=== PATIENT | male | born 1990 | race Caucasian/White ===

== ENCOUNTER 2019-03-12 09:43 | Emergency (ER) | payer BC ==
[2019-03-12 11:15] VITALS: BP 100/84
--- NOTE | 2019-03-12 12:34 | ED ---
Lower Extremity - HPI Summary HPI Summary: Patient is a 28-year-old male who presents to the ED with a left ankle injury/ pain. Patient is endorsing pain to the left lateral ankle with swelling. Denies ecchymosis. He states he has fractured this ankle approximately 3 times in the past. He states this feels similar. He's been unable to ambulate. Unable to bear weight. He has been icing and elevating since yesterday without much improvement. He also took a 200 mg ibuprofen. - History of Current Complaint Chief Complaint: EDExtremityLower Stated Complaint: "LEFT ANKLE INJURY PER PT" Time Seen by Provider: 03/12/19 09:50 Hx Obtained From: Patient Mechanism Of Injury: Twisted Onset of Pain: Hours Onset/Duration: Hours Severity Initially: Moderate Severity Currently: Moderate Pain Intensity: 4 Pain Scale Used: 0-10 Numeric Timing: Constant Location: Is Discrete @ - left ankle pain Character Of Pain: Aching Associated Signs And Symptoms: Positive: Swelling. Negative: Redness, Bruising Aggravating Factor(s): Standing, Ambulation Alleviating Factor(s): Rest Able to Bear Weight: No - Risk Factors Gout Risk Factors: Negative DVT Risk Factors: Negative Septic Arthritis Risk Factor: Negative - Allergies/Home Medications Allergies/Adverse Reactions: Allergies Allergy/AdvReac Type Severity Reaction Status Date / Time No Known Allergies Allergy Verified 03/12/19 09:47 Home Medications: Home Medications NK [No Home Medications Reported] 03/12/19 [History Confirmed 03/12/19] PMH/Surg Hx/FS Hx/Imm Hx Previously Healthy: Yes - Immunization History Hx Pertussis Vaccination: No Immunizations Up to Date: Yes Infectious Disease History: No Infectious Disease History: Denies: Traveled Outside the [place] in Last 30 Days - Social History Occupation: Employed Full-time Lives: With Family Alcohol Use: Occasionally Hx Substance Use: No Substance Use Type: Reports: None Hx Tobacco Use: Yes Smoking Status (MU): Current Some Day Smoker Review of Systems Constitutional: Negative Negative: Fever, Chills, Fatigue Negative: Palpitations, Chest Pain Negative: Shortness Of Breath, Cough Genitourinary: Negative Positive: no symptoms reported, see HPI Positive: Arthralgia - left lateral ankle pain. Negative: Myalgia Neurological: Negative All Other Systems Reviewed And Are Negative: Yes Physical Exam Triage Information Reviewed: Yes Vital Signs On Initial Exam: Initial Vitals Temp Pulse Resp BP Pulse Ox 98.4 F 83 18 131/91 98 03/12/19 09:45 03/12/19 09:45 03/12/19 09:45 03/12/19 09:45 03/12/19 09:45 Vital Signs Reviewed: Yes Appearance: Positive: Well-Appearing, Well-Nourished Skin: Positive: Warm, Skin Color Reflects Adequate Perfusion Head/Face: Positive: Normal Head/Face Inspection Eyes: Positive: EOMI, Conjunctiva Clear Neck: Positive: Supple, No Lymphadenopathy Respiratory/Lung Sounds: Positive: Clear to Auscultation, Breath Sounds Present Cardiovascular: Positive: RRR, Pulses are Symmetrical in both Upper and Lower Extremities Musculoskeletal: Positive: Pain @ - left lateral ankle pain Neurological: Positive: Sensory/Motor Intact, Alert, Oriented to Person Place, Time, Speech Normal Psychiatric: Positive: Affect/Mood Appropriate AVPU Assessment: Alert Diagnostics - Vital Signs Vital Signs Temp Pulse Resp BP Pulse Ox 03/12/19 11:14 98.6 F 82 16 100/84 97 03/12/19 09:45 98.4 F 83 18 131/91 98 - Laboratory Lab Statement: Any lab studies that have been ordered have been reviewed, and results considered in the medical decision making process. Lower Extremity Course/Dx - Course Course Of Treatment: X-ray of the left ankle obtained which is soft tissue swelling. Negative for any fracture. This is discussed with the patient. Patient is able to plantarflex and dorsiflex however with discomfort. Soft tissue swelling is noted on exam, however there is no ecchymosis. Patient arrives with crutches and a splint. He will be taken out of work times one week , is encouraged elevation and ice as well as the use of the splint and crutches. He will return to the ED or follow-up with ortho if symptoms worsen. - Diagnoses Differential Diagnosis/HQI/PQRI: Positive: Sprain - left lateral ankle pain, Strain Provider Diagnoses: Ankle pain, Ankle sprain Discharge - Sign-Out/Discharge Documenting (check all that apply): Patient Departure Patient Received Moderate/Deep Sedation with Procedure: No - Discharge Plan Condition: Stable Disposition: HOME Patient Education Materials: Ankle Sprain (ED) Forms: *Work Release Referrals: No Primary Care Phys,NOPCP [Primary Care Provider] - Additional Instructions: Ibuprofen 600 mg 3 times daily Elevate as much as possible Use ice to the area - Billing Disposition and Condition Condition: STABLE Disposition: Home
== END 2019-03-12 11:14 | disposition home or self-care (01) ==
LOC: ED 09:43
DX: S93.402A Sprain of unspecified ligament of left ankle, initial encounter (principal); F17.210 Nicotine dependence, cigarettes, uncomplicated; X58.XXXA Exposure to other specified factors, initial encounter
CPT/HCPCS: 99282